=== PATIENT | female | born 1950 | race Caucasian/White ===

== ENCOUNTER 2016-05-31 15:17 | Emergency (ER) | payer MEDICARE ==
[2009-07-22 21:37] VITALS: BMI 29.5
[2016-05-31 16:30] LABS: BASOPHILS 0.3 % (0.0-2.0); EOSINOPHILS 0.9 % (0-7); HEMATOCRIT 38.1 % (36.0-48.0); HEMOGLOBIN 12.8 g/dL (12-16); IMMATURE GRANULOCYTES 0.2 % (0-5); LYMPHOCYTES 24.4 % (15-50); MCH 31.8 pg (26.0-34.0); MCHC 33.6 g/dL (31.0-37.0); MCV 94.5 fL (80.0-100.0); MONOCYTES 7.2 % (2-11); PLATELET COUNT 220 10x3/uL (130-400); RBC 4.03 10x6/uL (4.00-5.40); RDW 12.7 % (11.5-14.5); WBC 12.3 10x3/uL (4.8-10.8)
[2016-05-31 16:51] LABS: ALBUMIN 3.8 g/dL (3.4-5.0); ANION GAP 14.1 mmol/L (8-16); BILIRUBIN - TOTAL 0.6 mg/dL (0.2-1.3); CALCIUM 9.2 mg/dL (8.5-10.1); CARBON DIOXIDE 27.1 mmol/L (21.0-32.0); CREATININE - SERUM 0.9 mg/dL (0.6-1.3); POTASSIUM - SERUM 4.2 mmol/L (3.5-5.1); PROTEIN - SERUM 8.1 g/dL (6.4-8.2)
== END 2016-05-31 18:01 | disposition home or self-care (01) ==
LOC: D.ER 15:17
PROVIDERS: Family Medicine
DX: R11.10 Vomiting, unspecified (principal); C50.919 Malignant neoplasm of unspecified site of unspecified female breast; E11.9 Type 2 diabetes mellitus without complications; I10 Essential (primary) hypertension

== ENCOUNTER 2016-06-22 09:39 | Emergency (ER) | payer MEDICARE, OTHER ==
[2009-07-22 21:37] VITALS: BMI 29.5
[2016-06-22 10:25] LABS: ALBUMIN 3.6 g/dL (3.4-5.0); ANION GAP 14.9 mmol/L (8-16); BILIRUBIN - TOTAL 0.26 mg/dL (0.2-1.3); CALCIUM 9.1 mg/dL (8.5-10.1); CARBON DIOXIDE 26.3 mmol/L (21.0-32.0); CREATININE - SERUM 0.9 mg/dL (0.6-1.3); POTASSIUM - SERUM 4.2 mmol/L (3.5-5.1)
== END 2016-06-22 11:02 | disposition home or self-care (01) ==
LOC: D.ER 09:39
PROVIDERS: Emergency Medicine
DX: I10 Essential (primary) hypertension (principal); F41.1 Generalized anxiety disorder; C50.919 Malignant neoplasm of unspecified site of unspecified female breast; E11.9 Type 2 diabetes mellitus without complications; I49.3 Ventricular premature depolarization

== ENCOUNTER 2017-07-05 22:44 | Emergency (ER) | payer MEDICARE, OTHER ==
[2009-07-22 21:37] VITALS: BMI 29.5
[2017-07-05 23:56] LABS: BASOPHILS 0.5 % (0-2); EOSINOPHILS 5.3 % (0-7); HEMATOCRIT 39.7 % (36.0-48.0); HEMOGLOBIN 13.5 g/dL (12-16); IMMATURE GRANULOCYTES 0.2 % (0-5); MCH 31.8 pg (26.0-34.0); MCV 93.6 fL (80.0-100.0); MEAN PLATELET VOLUME 10.6 fL (7.4-10.4); MONOCYTES 8.3 % (2-11); NEUTROPHILS 39.7 % (40-80); PLATELET COUNT 186 10x3/uL (130-400); RBC 4.24 10x6/uL (4.00-5.40); RDW 12.4 % (11.5-14.5); WBC 6.2 10x3/uL (4.8-10.8)
[2017-07-05 23:56] LABS: APPEARANCE CLEAR (CLEAR); BILIRUBIN NEGATIVE (NEGATIVE); COLOR YELLOW (YELLOW); GLUCOSE 250 mg/dL (NEGATIVE); KETONE NEGATIVE (NEGATIVE); NITRITE NEGATIVE (NEGATIVE); PROTEIN NEGATIVE (NEGATIVE); UROBILINOGEN NORMAL (NORMAL)
[2017-07-06 00:07] LABS: ALBUMIN 3.9 g/dL (3.4-5.0); ANION GAP 16.8 mmol/L (8-16); BILIRUBIN - TOTAL 0.22 mg/dL (0.2-1.3); CALCIUM 9.5 mg/dL (8.5-10.1); CARBON DIOXIDE 23.6 mmol/L (21.0-32.0); CREATININE - SERUM 0.9 mg/dL (0.6-1.3); POTASSIUM - SERUM 4.4 mmol/L (3.5-5.1); PROTEIN - SERUM 8.3 g/dL (6.4-8.2)
== END 2017-07-06 00:36 | disposition home or self-care (01) ==
LOC: D.ER 22:44
PROVIDERS: Family Medicine
DX: I10 Essential (primary) hypertension (principal); R51 Headache; E11.9 Type 2 diabetes mellitus without complications; Z85.3 Personal history of malignant neoplasm of breast; K21.9 Gastro-esophageal reflux disease without esophagitis

== ENCOUNTER 2017-07-11 23:46 | Inpatient (IN) | payer MEDICARE, OTHER ==
[~2017-07-11] VITALS: Ht 162.6 cm; Wt 77.1 kg
--- NOTE | ~2017-07-11 | OP ---
PATIENT NAME: DEBORAH BOYCE MEDICAL RECORD: [id number] :50 LOCATION:[id number] ADMISSION DATE:07/12/17 SURGEON: IRON BILLINGS MD DATE OF OPERATION: 07/12/2017 ANESTHESIA: Dr. Ivy. LORD. SURGEON: Iron Billings MD ENGINE INSPECTOR: None. PREOPERATIVE DIAGNOSIS: Right displaced proximal humerus fracture (surgical neck). POSTOPERATIVE DIAGNOSES: Right displaced proximal humerus fracture (surgical neck); avulsion fracture of the right subscapularis tendon including a 3cm X 4cm bony fragment from its anatomic location. PROCEDURE: Open reduction internal fixation of right proximal humerus surgical neck fracture; open reduction internal fixation of the avulsion fracture of the subscapularis tendon to its anatomic location. ANTIBIOTIC: 1 gram Ancef. BLOOD LOSS: 250 cc. FINDINGS: See the body of report. COMPLICATIONS: None. Pathology: None. Implants: Channing proximal humerus plate and a cannulated compression screw. Drains: One DANISH drain placed. Post op condition: Stable to the recovery room. Needle, sponge, and instrument counts correct. INDICATIONS: Mrs. Boyce is a 67-year-old female who presented yesterday evening around midnight with a fall from standing directly on to her right shoulder. Her presenting complaint in the Emergency Room was pain and inability to range her right shoulder as well as deformity. She denies head trauma. She was evaluated and found to have sustained a closed surgical neck fracture of her right proximal humerus and was indicated for open reduction internal fixation due to the displacement. She was admitted, cleared in the morning by both medicine and cardiology, and was optimized. She was taken to the operating room after obtaining informed consent, which included discussion of the risks, benefits, alternatives, and complications. The patient's questions were answered prior to surgery. DESCRIPTION OF PROCEDURE: After obtaining consent, the patient was taken to the operating room and placed supine on the operative table where general endotracheal anesthesia was provided by the anesthesia department. She was placed in the beachchair position and the fluoroscope was brought in to confirm OPERATIVE REPORT [id number] DEBORAH BOYCE that operative shots would be able to be obtained and they were deemed adequate. The right upper extremity was then elevated, prepped and draped in the usual sterile fashion. The fluoroscope was brought in to dario the bony landmarks due to the body habitus of the right shoulder and upper chest. An incision was then made for a deltopectoral approach to the right proximal humerus. The incision went from the coracoid down to just above the axillary fold. The incision was taken through skin and bleeders were then cauterized. The deltopectoral interval and cephalic vein were identified. The vein and pectoral muscles were retracted medially at which time the short head of the biceps tendon was visualized as well as the long head of the biceps tendon, which was dislocated from its groove medially. The deltoid muscle was retracted laterally and the proximal humerus fracture was indentified. It was at this time that the 3cm X 3cm avulsion fracture attached to the subscapularis tendon was identified. Paralysis was then provided by anesthesia at which time the bony fragments became more mobile. A reduction maneuver was first done between the shaft and the head fragment. Anatomic reduction was visualized anteriorly and along the bicipital groove. Pins were then placed to provisionally hold fixation and a 3-hole proximal humeral plate was selected and placed along the lateral humerus just lateral to the bicipital groove. K-wires were then placed to hold this in place and fluoroscopic imaging was used to confirm placement as well as direct visualization of the reduced fracture. First, locking screws were placed into the proximal segment through the plate followed by a compression screw which was a regular cortical screw in the slotted hole. Compression was obtained and 2 additional locking screws were placed distally into the plate. At this time, all holes in the plate were filled except the cancellous screw hole in the head portion of the plate and this screw was placed as well for additional fixation. Two additional locking screws were placed to complete the fixation. The avulsion fracture was then addressed and secured by suture which was run through the plate. It was placed into its base from which it fractured and tied to the plate. It was determined that additional fixation was required and one cannulated compression screw was placed to add fixation for this fragment. Copious irrigation was then carried out. Final imaging to confirm placement of screws, not in the joint as well as in anatomic reduction was performed and these were saved. A drain was placed followed by closure using sutures in the deep tissues. Monocryl was placed to close skin, as well as Dermabond. A sterile dressing was also placed. She was then awakened and extubated in stable condition and brought to recovery room. She will be admitted overnight to allow hemostasis to be confirmed and for pain control. She can be discharge once pain is controlled on oral pain meds. She will follow up in the orthopedic clinic in 10-14 days for a wound check and suture removal. She will also be placed in a sling and will be instructed not to externally rotate due to the subscapularis fixation. TRANSINT:[id number] Voice Confirmation ID: [id number] DOCUMENT ID: [id number] OPERATIVE REPORT [id number] DEBORAH BOYCE ANDREW M MD at 1021 CC: [id number] DICTATION DATE: 07/12/[address] ADMINISTRATOR: 07/12/17 1732 ADM IN [place] [id number] [place] [address]
[2017-07-12] VITALS (7 sets, daily range): BP systolic 108–174; BP diastolic 62–92; Ht 162.6 cm; Wt 77.1 kg
[2017-07-12 01:49] LABS: BASOPHILS 0.3 % (0-2); EOSINOPHILS 2.1 % (0-7); HEMATOCRIT 37.3 % (36.0-48.0); HEMOGLOBIN 12.7 g/dL (12-16); IMMATURE GRANULOCYTES 0.3 % (0-5); LYMPHOCYTES 22.5 % (15-50); MCH 32.2 pg (26.0-34.0); MCV 94.4 fL (80.0-100.0); MEAN PLATELET VOLUME 10.1 fL (7.4-10.4); NEUTROPHILS 69.8 % (40-80); PLATELET COUNT 225 10x3/uL (130-400); RBC 3.95 10x6/uL (4.00-5.40); RDW 12.2 % (11.5-14.5); WBC 11.9 10x3/uL (4.8-10.8)
[2017-07-12 02:02] LABS: APTT 22.6 SECONDS (22.8-39.4); INR 0.98 (0.85-1.17); PROTIME 12.6 SECONDS (11.6-15.0)
[2017-07-12 02:10] LABS: ALBUMIN 3.8 g/dL (3.4-5.0); ANION GAP 12.8 mmol/L (8-16); BILIRUBIN - TOTAL 0.32 mg/dL (0.2-1.3); CARBON DIOXIDE 26.3 mmol/L (21.0-32.0); POTASSIUM - SERUM 4.1 mmol/L (3.5-5.1); PROTEIN - SERUM 8.3 g/dL (6.4-8.2)
[2017-07-12] MEDS ORDERED: BETAPACE 80 MG80 MG PO (04:46)
[2017-07-13 03:22] LABS: APPEARANCE CLEAR (CLEAR); BILIRUBIN NEGATIVE (NEGATIVE); COLOR YELLOW (YELLOW); GLUCOSE 250 mg/dL (NEGATIVE); KETONE NEGATIVE (NEGATIVE); NITRITE NEGATIVE (NEGATIVE); PROTEIN NEGATIVE (NEGATIVE); SPECIFIC GRAVITY 1.025 (1.005-1.020); UROBILINOGEN NORMAL (NORMAL)
[2017-07-13 04:24] VITALS: BP 108/56
[2017-07-13 06:49] LABS: ALBUMIN 2.7 g/dL (3.4-5.0); ANION GAP 12.2 mmol/L (8-16); BILIRUBIN - TOTAL 0.45 mg/dL (0.2-1.3); CALCIUM 7.7 mg/dL (8.5-10.1); CARBON DIOXIDE 24.4 mmol/L (21.0-32.0); CREATININE - SERUM 0.9 mg/dL (0.6-1.3); POTASSIUM - SERUM 3.6 mmol/L (3.5-5.1); PROTEIN - SERUM 6.4 g/dL (6.4-8.2)
[2017-07-13 06:54] LABS: BASOPHILS 0.3 % (0-2); EOSINOPHILS 1.6 % (0-7); HEMATOCRIT 29.6 % (36.0-48.0); HEMOGLOBIN 9.8 g/dL (12-16); IMMATURE GRANULOCYTES 0.1 % (0-5); LYMPHOCYTES 39.8 % (15-50); MCH 31.6 pg (26.0-34.0); MCHC 33.1 g/dL (31.0-37.0); MCV 95.5 fL (80.0-100.0); MEAN PLATELET VOLUME 10.3 fL (7.4-10.4); MONOCYTES 10.1 % (2-11); NEUTROPHILS 48.1 % (40-80); PLATELET COUNT 172 10x3/uL (130-400); RDW 12.6 % (11.5-14.5); WBC 7.7 10x3/uL (4.8-10.8)
[2017-07-13 09:07] VITALS: BP 160/67
[2017-07-13 12:36] VITALS: BP 128/58
[2017-07-13 16:27] VITALS: BP 157/89
[2017-07-13 21:47] VITALS: BP 177/82
[2017-07-14 02:19] VITALS: BP 162/71
[2017-07-14 05:12] LABS: ALBUMIN 2.8 g/dL (3.4-5.0); ALKALINE PHOSPHATASE 40 U/L (46-116); ALT (SGPT) 33 U/L (10-68); CALC OSMOLALITY 273 mosm/kg (275-300); CALCIUM 8.2 mg/dL (8.5-10.1); CARBON DIOXIDE 23.6 mmol/L (21.0-32.0); CHLORIDE - SERUM 102 mmol/L (98-107); CREATININE - SERUM 0.7 mg/dL (0.6-1.3); GLUCOSE 145 mg/dL (74-106); POTASSIUM - SERUM 3.7 mmol/L (3.5-5.1); PROTEIN - SERUM 6.9 g/dL (6.4-8.2); SODIUM 136 mmol/L (136-145); UREA NITROGEN 10 mg/dL (7-18); eGFR NON AFRICAN AMERICAN 88 mL/min (90-120)
[2017-07-14 05:53] LABS: BASOPHILS 0.2 % (0-2); EOSINOPHILS 2.5 % (0-7); HEMATOCRIT 31.1 % (36.0-48.0); HEMOGLOBIN 10.1 g/dL (12-16); IMMATURE GRANULOCYTES 0.2 % (0-5); MCH 31.8 pg (26.0-34.0); MCHC 32.5 g/dL (31.0-37.0); MONOCYTES 12.1 % (2-11); PLATELET COUNT 189 10x3/uL (130-400); RBC 3.18 10x6/uL (4.00-5.40); RDW 12.7 % (11.5-14.5); WBC 8.5 10x3/uL (4.8-10.8)
[2017-07-14 05:56] LABS: MCV 97.8 fL (80.0-100.0)
[2017-07-14 06:04] VITALS: BP 161/70
[2017-07-14 07:05] VITALS: BP 135/70
[2017-07-14 11:02] VITALS: BP 116/66
[2017-07-14 15:00] VITALS: BP 136/70
[2017-07-14 22:04] VITALS: BP 145/60
[2017-07-15 00:46] VITALS: BP 154/79
[2017-07-15 05:19] VITALS: BP 150/73
[2017-07-15 05:36] LABS: BASOPHILS 0.5 % (0-2); EOSINOPHILS 4.5 % (0-7); HEMATOCRIT 30.1 % (36.0-48.0); HEMOGLOBIN 9.8 g/dL (12-16); IMMATURE GRANULOCYTES 0.3 % (0-5); LYMPHOCYTES 48.5 % (15-50); MCH 31.5 pg (26.0-34.0); MCHC 32.6 g/dL (31.0-37.0); MCV 96.8 fL (80.0-100.0); MEAN PLATELET VOLUME 9.6 fL (7.4-10.4); MONOCYTES 10.2 % (2-11); PLATELET COUNT 194 10x3/uL (130-400); RBC 3.11 10x6/uL (4.00-5.40); RDW 12.5 % (11.5-14.5)
[2017-07-15 05:44] LABS: WBC 6.2 10x3/uL (4.8-10.8)
[2017-07-15 05:54] LABS: ALBUMIN 2.7 g/dL (3.4-5.0); ALKALINE PHOSPHATASE 39 U/L (46-116); ALT (SGPT) 30 U/L (10-68); CALC OSMOLALITY 282 mosm/kg (275-300); CARBON DIOXIDE 27.4 mmol/L (21.0-32.0); CHLORIDE - SERUM 105 mmol/L (98-107); CREATININE - SERUM 0.7 mg/dL (0.6-1.3); GLUCOSE 122 mg/dL (74-106); POTASSIUM - SERUM 3.8 mmol/L (3.5-5.1); PROTEIN - SERUM 6.1 g/dL (6.4-8.2); SODIUM 142 mmol/L (136-145); UREA NITROGEN 10 mg/dL (7-18); eGFR NON AFRICAN AMERICAN 88 mL/min (90-120)
[2017-07-15 08:08] VITALS: BP 124/69
[2017-07-15 11:52] VITALS: BP 124/56
[2017-07-15] MEDS ORDERED: PERCOCET 5-3251 TAB PO (12:42)
== END 2017-07-15 13:21 | disposition home or self-care (01) | DRG 494 ==
LOC: D.ER 23:46 → D.MS 07-12 01:23
PROVIDERS: Emergency Medicine; Family Medicine Adult Medicine; Orthopaedic Surgery Foot and Ankle Surgery
PROC: 0PSC04Z Reposition Right Humeral Head with Internal Fixation Device, Open Approach (ICD-10-PCS; principal; 2017-07-12 09:10)
DX: S42.211A Unspecified displaced fracture of surgical neck of right humerus, initial encounter for closed fracture (principal); S46.811A Strain of other muscles, fascia and tendons at shoulder and upper arm level, right arm, initial encounter; W18.30XA Fall on same level, unspecified, initial encounter; K21.9 Gastro-esophageal reflux disease without esophagitis; I10 Essential (primary) hypertension; E11.65 Type 2 diabetes mellitus with hyperglycemia; I25.10 Atherosclerotic heart disease of native coronary artery without angina pectoris; I48.91 Unspecified atrial fibrillation; E11.40 Type 2 diabetes mellitus with diabetic neuropathy, unspecified

== ENCOUNTER → 2017-08-21 19:39 | Emergency (ER) | payer MEDICARE, OTHER ==
[2017-07-12 12:49] VITALS: BMI 29.2
[~2017-08-21 19:39] MED LIST: BETAPACE 80 MG80 MG PO; PERCOCET 5-3251 TAB PO
== END | disposition left against medical advice (07) ==
LOC: D.ER 19:39
DX: Z02.9 Encounter for administrative examinations, unspecified (principal)

== ENCOUNTER 2020-01-28 11:42 | Emergency (ER) | payer MEDICARE, OTHER ==
[~2020-01-28] VITALS: Ht 162.6 cm; Wt 72.7 kg
[2020-01-28 12:04] VITALS: Ht 162.6 cm; Wt 72.7 kg
[2020-01-28 13:07] LABS: BASOPHILS 0.6 % (0-2); EOSINOPHILS 3.4 % (0-7); HEMATOCRIT 39.9 % (36.0-48.0); HEMOGLOBIN 13.2 g/dL (12-16); IMMATURE GRANULOCYTES 0.1 % (0-5); LYMPHOCYTES 38.7 % (15-50); MCH 30.8 pg (26.0-34.0); MCHC 33.1 g/dL (31.0-37.0); MEAN PLATELET VOLUME 9.2 fL (7.4-10.4); MONOCYTES 6.1 % (2-11); NEUTROPHILS 51.1 % (40-80); RBC 4.29 10x6/uL (4.00-5.40); RDW 12.4 % (11.5-14.5); WBC 6.9 10x3/uL (4.8-10.8)
[2020-01-28 13:09] LABS: PLATELET COUNT 238 10x3/uL (130-400)
[2020-01-28 13:14] LABS: CALC OSMOLALITY 274 mosm/kg (275-300); CALCIUM 9.7 mg/dL (8.5-10.1); CHLORIDE - SERUM 102 mmol/L (98-107); GLUCOSE 152 mg/dL (74-106); POTASSIUM - SERUM 4.2 mmol/L (3.5-5.1); SODIUM 136 mmol/L (136-145); UREA NITROGEN 12 mg/dL (7-18); eGFR NON AFRICAN AMERICAN 58 mL/min (90-120)
[2020-01-28 13:15] LABS: APTT 22.1 SECONDS (22.8-39.4); INR 0.94 (0.85-1.17); PROTIME 12.6 SECONDS (11.6-15.0)
[2020-01-28 13:31] LABS: ALBUMIN 3.8 g/dL (3.4-5.0); ALKALINE PHOSPHATASE 50 U/L (30-120); ALT (SGPT) 47 U/L (10-68); BILIRUBIN - TOTAL 0.25 mg/dL (0.2-1.3); CKMB 2.6 U/L (0.0-3.6); CREATINE KINASE 173 UL (21-215); MAGNESIUM - SERUM 2.3 mg/dL (1.8-2.4); PROTEIN - SERUM 8.7 g/dL (6.4-8.2); TROPONIN-I < 0.017 ng/mL (0.000-0.060)
[2020-01-28 18:35] VITALS: BP 156/75
== END 2020-01-28 18:35 | disposition home or self-care (01) ==
LOC: D.ER 11:42
PROVIDERS: Family Medicine
DX: R00.2 Palpitations (principal); R11.0 Nausea; E11.40 Type 2 diabetes mellitus with diabetic neuropathy, unspecified